=== PATIENT | female | born 1960 | race Caucasian/White ===

== ENCOUNTER 2024-11-16 11:30 | Outpatient (RCR) | payer MEDICARE, SELFPAY ==
--- NOTE | 2024-11-14 14:42 | PT.OIERPT ---
PT OP Initial Eval Patient Information Outpatient Physical Therapy Treatment Date: 11/14/24 Visit Reasons: LOW BACK PAIN Medical Diagnosis: Low Back Pain Treatment Dx #1: Low Back Pain Start of Care: 11/14/24 Date of Onset: 1 year ago Smoking Status Smoking Status: Never smoker Initial Assessment Subjective: Pt is a 64 y/o female reports of chronic back pain (12/28) with left pain worsening ~ 1 year ago. Pt's most recent xray showed moderate DDD of the L3-L4 and L4-L5 segments. No MRI has been done thus far. Pt has limitation with sitting, standing, chores, self care, balance, and performing recreational activities. Objective: L/S AROM: all motions are WFL Hip PROM: all motions are WNL Hip MMTs: grossly 3/5 Special Test (+) SLR Assessment: Pt demonstrate back pain with mobility deficits leading to difficulty with ADLs. Pt will attempt physical therapy if pain persist Pt will be refer back to provider for further consultation. Short Term and [facility] Goals 1) Increase L/S AROM WFL in 6 wks to be able to perform chores 2) Decrease back pain to 2/10 in 6 wks to be able to perform sit and stand more than 30 mins 3) Increase core strength WNL in 6 wks to be able to perform recreational activities 4) Increase hip MMTs grossly to 4-/5 in 6 wks to be able to walk more than 30 mins 5) Indep with HEP Treatment Plan 1) Manual Therapy 2) Therapeutic Activities 3) Therapeutic Exercises 4) Modalities (ice, heat, traction) Frequency and Duration: 2 x wk for 6 wks Certification Dates: 11/14/24 to 02/14/25 Procedure Charges OP PT Eval Mod Complex 30 minutes: Yes
--- NOTE | 2024-11-16 11:50 | PT.ODAYNRPT ---
PT Outpatient Daily Note OP Daily Note Outpatient Physical Therapy Treatment Date: 11/16/24 Visit Reasons: LOW BACK PAIN Subjective: Pt's back is okay. Pt mentioned it still has it's moment. Objective: Please see flow chart for list of ther ex performed Assessment: tolerate exercises with minimal pain Plan: Continue with PT Length of Time (minutes) of Treatment: 30 Minutes Procedure Charges Therapeutic Exercise 30 minutes: Yes
== END 2024-11-18 23:59 | disposition home or self-care (01) ==
LOC: CPTX 11:30
PROVIDERS: PCP Physician Assistant; Referring Provider Physician Assistant; Visit Provider Physician Assistant
DX: M51.362 Other intervertebral disc degeneration, lumbar region with discogenic back pain and lower extremity pain (principal); R26.89 Other abnormalities of gait and mobility; G89.29 Other chronic pain
CPT/HCPCS: 97110; 97162

== ENCOUNTER 2024-12-07 13:00 | Outpatient (RCR) | payer MEDICARE, SELFPAY ==
--- NOTE | 2024-11-20 11:46 | PT.ODAYNRPT ---
PT Outpatient Daily Note OP Daily Note Outpatient Physical Therapy Treatment Date: 11/20/24 Visit Reasons: low back pain Subjective: Pt's back is better, however, was sore after last session. Pt has been doing supine exercises at home as HEP. Objective: Please see flow chart for list of ther ex performed Assessment: tolerate exercises with minimal pain Plan: Continue with PT Length of Time (minutes) of Treatment: 30 Minutes Procedure Charges Therapeutic Exercise 30 minutes: Yes
--- NOTE | 2024-11-23 15:46 | PT.ODAYNRPT ---
PT Outpatient Daily Note OP Daily Note Outpatient Physical Therapy Treatment Date: 11/23/24 Visit Reasons: low back pain Subjective: Pt's back is better. Pt notice less pain with walking. Objective: Please see flow chart for list of ther ex performed Assessment: tolerate exercises with minimal pain Plan: Continue with PT Length of Time (minutes) of Treatment: 30 Minutes Procedure Charges Therapeutic Exercise 30 minutes: Yes
--- NOTE | 2024-11-29 14:56 | PT.ODAYNRPT ---
PT Outpatient Daily Note OP Daily Note Outpatient Physical Therapy Treatment Date: 11/29/24 Visit Reasons: low back pain Subjective: Pt's back pain is a little better, however, still notice intermittent pain. Objective: Please see flow chart for list of ther ex performed Assessment: progress patient to more core exercises with good tolerance Plan: Continue with PT Length of Time (minutes) of Treatment: 30 Minutes Procedure Charges Therapeutic Exercise 30 minutes: Yes
--- NOTE | 2024-12-01 11:59 | PT.ODAYNRPT ---
PT Outpatient Daily Note OP Daily Note Outpatient Physical Therapy Treatment Date: 12/01/24 Visit Reasons: low back pain Subjective: Pt's back feels much better. Pt mentioned she can sit, stand, and walk longer with less pain reported. Pt feels that physical therapy exercises are about the right intensity. Objective: Please see flow chart for list of ther ex performed Assessment: tolerate exercises with minimal pain; cues to correct tick tock exercises to engage more glute medius Plan: Continue with PT Length of Time (minutes) of Treatment: 30 Minutes Procedure Charges Therapeutic Exercise 30 minutes: Yes
--- NOTE | 2024-12-05 15:29 | PT.ODAYNRPT ---
PT Outpatient Daily Note OP Daily Note Outpatient Physical Therapy Treatment Date: 12/05/24 Visit Reasons: low back pain Subjective: Pt's back feels a little better and has been able to walk longer with less pain. Objective: Please see flow chart for list of ther ex performed Assessment: added more core strengthening exercises with good tolerance Plan: Continue with PT Length of Time (minutes) of Treatment: 30 Minutes Procedure Charges Therapeutic Exercise 30 minutes: Yes
--- NOTE | 2024-12-07 14:36 | PTNOTE_ITS ---
PT Outpatient Daily Note OP Daily Note Outpatient Physical Therapy Treatment Date: 12/07/24 Visit Reasons: low back pain Subjective: Pt reports improvement with lumbar symptoms. Objective: Please see flow sheet for ther ex list. Assessment: Pt familiar with interventions resulting in good technique. Plan: Continue with poC. Length of Time (minutes) of Treatment: 30 Minutes DEVELOPMENT AND HOUSING DIRECTOR Service Modifier Method I: Divide the number of min of care provided by the DEVELOPMENT AND HOUSING DIRECTOR/WATERWORKS PUMP STATION OPERATOR by the total min of care provided then multiply by 100. If greater than 11 percent modifier is required. Method II: Divide the total time of care provided to patient by 10 (round to the nearest whole number) and add 1 min. to set the minimum time requirement. If treatment total was 60 min., then 10% of 6 min PT CQ modifier applied: CQ Modifier applied Procedure Charges Therapeutic Exercise 30 minutes: Yes
== END 2024-12-18 23:59 | disposition home or self-care (01) ==
LOC: CPTX 13:00
PROVIDERS: PCP Physician Assistant; Referring Provider Physician Assistant; Visit Provider Physician Assistant
DX: M51.362 Other intervertebral disc degeneration, lumbar region with discogenic back pain and lower extremity pain (principal); R26.89 Other abnormalities of gait and mobility
CPT/HCPCS: 97110

== ENCOUNTER → 2024-12-28 | Outpatient (CLI) | payer MEDICARE, SELFPAY ==
--- NOTE | 2024-12-28 11:30 | XR_ITS ---
Examination: Ultrasound abdominal aorta TECHNIQUE: Grayscale sonographic images abdominal aorta Date and time: December 28, 2024 1122 hours INDICATIONS: Smoking history 6 years abdominal pain 6 months. FINDINGS: Transverse dimension proximal aorta 1.8 cm mid aorta 1.6 cm distal aorta 1.3 cm right iliac 0.9 cm left iliac 0.8 cm IMPRESSION:: Negative for abdominal aortic aneurysm
== END | disposition home or self-care (01) ==
LOC: CDIM 11:11
PROVIDERS: PCP Physician Assistant; Referring Provider Physician Assistant; Visit Provider Physician Assistant
DX: I70.0 Atherosclerosis of aorta (principal)
CPT/HCPCS: 76706

== ENCOUNTER 2025-01-16 13:00 | Outpatient (RCR) | payer MEDICARE, SELFPAY ==
--- NOTE | 2024-12-21 13:55 | PTNOTE_ITS ---
PT Outpatient Daily Note OP Daily Note Outpatient Physical Therapy Treatment Date: 12/21/24 Visit Reasons: low back pain Subjective: Pt reports LBP is doing ok right not, notices she has good and bad days. Objective: Please see flow sheet for ther ex list. Assessment: Pt demonstrates good static standing posture with thera band interventions. Plan: Continue with pOC. Length of Time (minutes) of Treatment: 30 Minutes AUTOMATIC GLOVE FORMER Service Modifier Method I: Divide the number of min of care provided by the AUTOMATIC GLOVE FORMER/SANDER PORTABLE MACHINE by the total min of care provided then multiply by 100. If greater than 11 percent modifier is required. Method II: Divide the total time of care provided to patient by 10 (round to the nearest whole number) and add 1 min. to set the minimum time requirement. If treatment total was 60 min., then 10% of 6 min PT CQ modifier applied: CQ Modifier applied Procedure Charges Therapeutic Exercise 30 minutes: Yes
--- NOTE | 2025-01-08 13:25 | PT.ODAYNRPT ---
PT Outpatient Daily Note OP Daily Note Outpatient Physical Therapy Treatment Date: 01/08/25 Visit Reasons: low back pain Subjective: Pt reports LBP is sore, pt has had a busy week. Pt mother in law was in the hospital so she was doing a lot of walking there. Pt helps care for her in laws and lives with them, takes them to doctors appointment. Objective: Please see flow sheet for ther ex list. Assessment: Held progression of interventions today to accommodate reported soreness. Plan: Continue with pOC. Length of Time (minutes) of Treatment: 30 Minutes Procedure Charges Therapeutic Exercise 30 minutes: Yes
--- NOTE | 2025-01-16 14:09 | PTNOTE_ITS ---
PT Outpatient Daily Note OP Daily Note Outpatient Physical Therapy Treatment Date: 01/16/25 Visit Reasons: low back pain Subjective: Pt reports her LBP is better today, she went for a swim yesterday. Objective: Please see flow sheet for ther ex list. Assessment: Decrease c/o pain with interventions assigned indicating progress. Plan: Continue with POC. Length of Time (minutes) of Treatment: 30 Minutes POCKETED SPRING MACHINE OPERATOR Service Modifier Method I: Divide the number of min of care provided by the POCKETED SPRING MACHINE OPERATOR/DANIELE by the total min of care provided then multiply by 100. If greater than 11 percent modifier is required. Method II: Divide the total time of care provided to patient by 10 (round to the nearest whole number) and add 1 min. to set the minimum time requirement. If treatment total was 60 min., then 10% of 6 min PT CQ modifier applied: CQ Modifier applied Procedure Charges Therapeutic Exercise 30 minutes: Yes
== END 2025-01-18 23:59 | disposition home or self-care (01) ==
LOC: CPTX 13:00
PROVIDERS: PCP Physician Assistant; Referring Provider Physician Assistant; Visit Provider Physician Assistant
DX: M51.360 Other intervertebral disc degeneration, lumbar region with discogenic back pain only (principal); G89.29 Other chronic pain
CPT/HCPCS: 97110

== ENCOUNTER 2025-01-24 13:00 | Outpatient (RCR) | payer MEDICARE, SELFPAY ==
--- NOTE | 2025-01-22 14:11 | PT.ODAYNRPT ---
PT Outpatient Daily Note OP Daily Note Outpatient Physical Therapy Treatment Date: 01/22/25 Visit Reasons: low back pain Subjective: Pt reports back has been feeling better has being compliant with HEP. Pt mentioned she is looking into purchasing thera band so she can continue with HEP. Objective: Please see flow sheet for ther ex list. Assessment: Pt able to replicate exercises with good technique. Plan: DC, HEP and thera band. Length of Time (minutes) of Treatment: 30 Minutes PATIENT FINANCIAL SERVICES SPECIALIST Service Modifier Method I: Divide the number of min of care provided by the PATIENT FINANCIAL SERVICES SPECIALIST/DANIELE by the total min of care provided then multiply by 100. If greater than 11 percent modifier is required. Method II: Divide the total time of care provided to patient by 10 (round to the nearest whole number) and add 1 min. to set the minimum time requirement. If treatment total was 60 min., then 10% of 6 min PT CQ modifier applied: CQ Modifier applied Procedure Charges Therapeutic Exercise 30 minutes: Yes
--- NOTE | 2025-01-24 13:06 | PT.ODS1RPT ---
PT OP Progress/Discharge Note Date of Service: 01/25/24 Progress Note/DC Note Progress Note/Discharge Note: DC Note Patient Information Visit Reasons: low back pain Medical Diagnosis: Low Back Pain Treatment Dx #1: Low Back Pain Service Continue Service or Discharge: Discharge Discharge Date: 01/24/25 Status Subjective: Pt's back is getting better. Pt has been able to stand, walk, perform chores, and ADLs longer with less back pain. Pt still has intermittent days where back hurts but it's been less frequently. At this time Pt feels comfortable being release from care with exercises to continue at home. Pt also plans to follow up with provider since it's been 6 months. Objective: L/S AROM: all motions are WNL Hip PROM: all motions are WNL Hip MMTs: grossly 4-/5 Assessment: Pt demonstrate improved L/S mobility and strength strength allowing her to resume ADLs, ambulate, stand, and perform recreational activities with less limitation. Pt will no longer benefit from physical therapy due to meeting most goals set in therapy. Pt was instructed on HEP last session and educated to continue exercises to maintain overall mobility. Pt performed all exercises safely, thank you for your referrals. Plan: D/C home with HEP and follow up with MD [facility] Procedure Charges Therapeutic Exercise 30 minutes: Yes
== END 2025-02-18 23:59 | disposition home or self-care (01) ==
LOC: CPTX 13:00
PROVIDERS: PCP Physician Assistant; Referring Provider Physician Assistant; Visit Provider Physician Assistant
DX: M51.360 Other intervertebral disc degeneration, lumbar region with discogenic back pain only (principal); R26.89 Other abnormalities of gait and mobility; G89.29 Other chronic pain
CPT/HCPCS: 97110